=== PATIENT | female | born 1970 | race Hispanic/Latino ===

== ENCOUNTER 2017-06-25 15:43 | Emergency (ER) | payer BC ==
[~2017-06-25] VITALS: Ht 160 cm; Wt 55.8 kg
[2017-06-25 16:14] LABS: HEMATOCRIT 41.3 % (36.0-46.0); MCH 30.6 PG (29.0-34.0); MCHC 32.7 G/DL (30.0-36.0); MCV 93.7 FL (83-99); MEAN PLAT.VOLUME 9.3 uM^3 (9.5-12.4); PLATELET COUNT 166 K/uL (156-360); RBC DIS.WIDTH-CV 12.2 % (11.8-14.6); RBC DIS.WIDTH-SD 42.2 % (39-53); RED BLOOD COUNT 4.41 M/uL (3.80-5.20); WHITE BLOOD COUNT 6.8 K/uL (4.1-10.2)
[2017-06-25 16:22] LABS: CHLORIDE 104 mEq/L (99-109); POTASSIUM 3.8 mEq/L (3.7-5.4); SODIUM 141 mEq/L (136-147)
[2017-06-25 16:24] LABS: GLUCOSE 94 mg/dL (70-99)
[2017-06-25 16:25] LABS: ANION GAP 10 MEQ/L (2-14)
[2017-06-25 16:26] LABS: TOTAL BILIRUBIN 0.4 mg/dL (0.0-1.0)
[2017-06-25 16:27] LABS: ALKALINE PHOSPHATASE 84 IU/L (3-129)
[2017-06-25 16:27] LABS: ADD MIUA? YES; BILIRUBIN NEGATIVE; BLOOD MODERATE; COLOR YELLOW ((YELLOW)); GLUCOSE (STRIP) NEGATIVE; KETONES NEGATIVE; LEUKOCYTES NEGATIVE; NITRITE NEGATIVE; PROTEIN (STRIP) NEGATIVE; SPECIFIC GRAVITY 1.011 (1.000-1.030); UROBILINOGEN 0.2 MG/DL (0.2-1.0)
[2017-06-25 16:28] LABS: GFR ESTIMATE (CALCULATED) > 59 mL/min/
[2017-06-25 16:29] LABS: UREA NITROGEN (BUN) 11 mg/dL (9-23)
[2017-06-25 16:31] LABS: LIPASE 42 U/L (1.0-51.0)
[2017-06-25 16:34] LABS: BACTERIA NONE SEEN /HPF; EPITHELIAL CELLS NONE SEEN /HPF; MUCUS TRACE /LPF; RED BLOOD CELLS 0-5 /HPF (0-5); WHITE BLOOD CELLS 0-5 /HPF (0-5)
[2017-06-25] MEDS ORDERED: INDOCIN25 MG PO (18:23)
[2017-06-25] MEDS ORDERED: KEFLEX500 MG PO (18:23)
[2017-06-25 18:45] VITALS: BP 121/74
== END 2017-06-25 18:45 | disposition home or self-care (01) ==
LOC: EME 15:43
PROVIDERS: Physician Assistant
DX: R10.9 Unspecified abdominal pain (principal); K59.00 Constipation, unspecified; R59.0 Localized enlarged lymph nodes; K21.9 Gastro-esophageal reflux disease without esophagitis
CPT/HCPCS: 74176; 80053; 81003; 83690; 85027; 87086; 99281; 99283; J1885